=== PATIENT | female | born 1970 | race Caucasian/White ===

== ENCOUNTER 2020-10-10 15:01 | Emergency (ER) | payer BC ==
--- NOTE | 2020-10-10 15:38 | EDM.PDOC ---
ED HPI GENERAL MEDICAL PROBLEM - General Chief Complaint: General Stated Complaint: PANIC ATTACK Time Seen by Provider: 10/10/20 15:27 Source of Information: Reports: Patient - History of Present Illness INITIAL COMMENTS - FREE TEXT/NARRATIVE: Joyce is a 50 year old female from the [facility] whom [place] of panic attack. Joyce reports two previous panic attacks after marijuana use in the past which caused increased anxiety symptoms. Joyce reports panic attack today and did not feel comfortable returning home to [place] today. Joyce has not sought care for anxiety, depression and panic attacks since onset of symptoms. - Related Data Allergies Allergy/AdvReac Type Severity Reaction Status Date / Time *environmental Allergy Hives Uncoded 10/10/20 15:14 Home Meds: Home Meds hydrOXYzine HCL [Atarax] 10 - 20 mg PO Q6H PRN 20 Days #20 tab 10/10/20 [Rx] Social & Family History - Tobacco Use Tobacco Use Status *Q: Never Tobacco User - Caffeine Use Caffeine Use: Reports: Coffee, Soda - Alcohol Use Number of Drinks Per Day: 2 - Recreational Drug Use Recreational Drug Use: No ED ROS GENERAL - Review of Systems Review Of Systems: Comprehensive ROS is negative, except as noted in HPI. ED EXAM, GENERAL - Physical Exam Exam: See Below General Appearance: Alert, WD/WN, Moderate Distress (panic attack, shallow rapids breathing with secondary symptoms of hyperventilating ) Eye Exam: Bilateral Eye: EOMI, Normal Inspection Ears: Hearing Grossly Normal Nose: Normal Inspection Throat/Mouth: Normal Inspection, Normal Voice, No Airway Compromise Neck: Normal Inspection Respiratory/Chest: No Respiratory Distress, Lungs Clear Cardiovascular: Normal Peripheral Pulses, Regular Rate, Rhythm GI/Abdominal: Soft Extremities: Normal Inspection, Normal Range of Motion Neurological: Alert, Oriented, CN II-XII Intact, Normal Cognition, Normal Gait Psychiatric: Normal Affect Skin Exam: Warm, Dry, Intact, Normal Color Course - Vital Signs Last Recorded V/S: Last Vital Signs Temp 36.5 C 10/10/20 15:11 Pulse 70 10/10/20 16:21 Resp 16 10/10/20 16:21 BP 142/79 H 10/10/20 15:11 Pulse Ox 99 10/10/20 16:21 - Orders/Labs/Meds Meds: Medications Discontinued Medications Generic Name Dose Route Start Last Admin Trade Name Xiomara PRN Reason Stop Dose Admin Hydroxyzine HCl 25 mg 10/10/20 16:11 10/10/20 16:21 Hydroxyzine Hcl 25 Mg Tab PO 10/10/20 16:12 25 mg ONETIME ONE Administration Departure - Departure Time of Disposition: 17:54 Disposition: Home, Self-Care 01 Clinical Impression: Anxiety, Panic attack - Discharge Information Prescriptions: hydrOXYzine HCL [Atarax] 10 - 20 mg PO Q6H PRN 20 Days #20 tab PRN Reason: Anxiety Instructions: Panic Attack, Managing Anxiety, Adult Referrals: PCP,None [Primary Care Provider] - Forms: ED Department Discharge Additional Instructions: 1. Meclizine 10-20mg every 6 hours as needed for anxiety, stress and panic. 2. Read information about anxiety and panic attack. 3. Call PCP for recheck with regarding symptoms, prevention, treatment, possible referral and counseling options. Sepsis Event Note (ED) - Evaluation Sepsis Screening Result: No Definite Risk - Focused Exam Vital Signs: Vital Signs Temp Pulse Resp BP Pulse Ox 10/10/20 16:21 70 16 99 10/10/20 15:11 36.5 C 85 24 H 142/79 H 98
[2020-10-10] MEDS ORDERED: hydrOXYzine HCl 25 MG Tab PO ONE (16:11)
== END 2020-10-10 18:11 | disposition home or self-care (01) ==
LOC: JP.ED 15:01
DX: F41.0 Panic disorder [episodic paroxysmal anxiety] (principal); Z91.048 Other nonmedicinal substance allergy status
CPT/HCPCS: 99283; A9270